=== PATIENT | female | born 1960 | race Caucasian/White ===

== ENCOUNTER → 2017-01-15 | Outpatient (CLI) | payer BC, OTHER ==
[~2017-01-15] MED LIST: ALBU8.5H5 INH; ASPI-557 PO; FLUT1DIS3 ORAL INH; IBUP-1724 PO; MULT1TAB69 PO; NAPR220C11 PO; PRED20TA PO; TRAZ-170 PO
== END ==
LOC: WC.BC 12:57
DX: Z12.31 Encounter for screening mammogram for malignant neoplasm of breast (principal)
CPT/HCPCS: 77063; G0202

== ENCOUNTER 2017-01-16 05:45 | Day surgery (SDC) | payer BC ==
[~2017-01-16] VITALS: Ht 167.6 cm; Wt 117.5 kg
--- OUTSIDE RECORDS SUMMARY | 2017-01-16 05:48 | XMS REPORT | Continuity of Care Document ---
Author Author [facility] Organization [facility] Address Unknown Phone Unavailable Support Name Relationship Address Phone ANTONIA MORATAYA MD Caregiver [address] [place] [address] Unavailable JENNIE BETANCOURT DO Caregiver [address] [place] [address] Unavailable ADMA HORN Next Of Kin [address] [place], [place] [id number] Insurance Providers Guarantor Jose Horn Address [address] [place] [address] c Email DENIED 16 Payer [facility] Policy Number [id number] Subscriber's Name Panchito,Adam Relationship 01 Spouse Group Number [id number] Effective Date 13 Payer Workers Compensation Subscriber's Name Jose Horn Relationship 18 Self Chief Complaint and Reason for Visit Chief Complaint Allergic Reaction Reason for Visit Allergic reaction Problems Active Problems Medical Problem Onset Date Status Allergic reaction Unknown Acute DM2 (diabetes mellitus, type 2) Unknown Chronic Obesities, morbid Unknown Chronic Patient left without being seen Unknown Acute Precordial chest pain Unknown Acute Past Problems Medical Problem Onset Date Cardiac angina Unknown Chest pain, rule out acute myocardial infarction Unknown Viral gastroenteritis Unknown Medications Current Home Medications Medication Dose Units Route Directions Days Qty Instructions Start Date Albuterol Sulfate (Proair Hfa) 8.5 Gm Aerosol 2 Puff Inhalation Every 4 Hours as needed for Prn Orders 12/18/11 Aspirin (Aspir 81) 81 Mg Tablet. 81 Mg Oral Daily 10/05/16 Fluticasone/Salmeterol (Advair 250-50 Diskus) 1 Disk W/Dev Inhaler 1 Puff Oral Inhalation Resp.tx Twice A Day 10/05/16 Ibuprofen 200 Mg Tablet 400 Mg Oral Every 6 Hours as needed for Pain 12/01/16 Multivitamin (Multivitamins) 1 Each Tablet 1 Tab Oral Daily 08/10 Prednisone 20 Mg Tablet 40 Mg Oral Daily 5 Days 10 Tablet Take daily each morning 12/01/16 Family History Relationship Condition Age at Onset Recorded Date/Time Not Specified Family history of coronary artery disease Not Recorded 2015 10:54am Social History Social History Problem Response Recorded Date/Time Onset Date Status Hx Substance Use No 12/01/2016 11:40am Not Applicable Not Applicable Hx Alcohol Use No 12/01/2016 11:40am Not Applicable Not Applicable Has the pt used tobacco in the last 12 months No 08/10/2016 3:27pm Not Applicable Not Applicable Query Response Start Date Stop Date Smoking Status Former smoker Hospital Discharge Instructions No hospital discharge instructions. Plan of Care Discharge Date 12/01/16 1:04pm Disposition 01 DISCHARGED HOME, SELF-CARE Condition at Discharge Improved Instructions/Education Provided General Allergic Reaction (ED) Prescriptions See Medication Section Referrals ANTONIA MORATAYA MD Order Date: 2 Days Address: [address] [place] [address] [place] [address] Note: Additional Instructions/Education Follow up as directed. Return to the ED if your condition worsens or changes in any manner. Care Plan and Goals Physician Care Plan Problem: Allergic Reaction Goal: Follow up with primary care provider Instructions: Take medications and follow care plan as discussed/written Goal: Follow up with primary care provider Instructions: Take medications and follow care plan as discussed/written Functional Status No functional status results. Allergies, Adverse Reactions, Alerts Allergen Type Severity Reaction Status Last Updated NKDA Allergy Unknown Active 12/01/16 Immunizations Query Response on File Recorded Date/Time Hx Influenza Vaccination No 08/10/16 3:27pm Hx Pneumococcal Vaccination No 08/10/16 3:27pm Hx Influenza Vaccination No 08/10/16 3:27pm DTaP Vaccine History 201112/01/16 11:40am Vital Signs Acute Vital Signs Vital Response Date/Time Temperature (Fahrenheit) 98.3 deg F (96.8 - 99.1) 12/01/2016 1:04pm Temperature (Calculated Celsius) 36.65545 degrees C (36.0 - 37.3) 12/01/2016 1:04pm Pulse Rate (adult) 68 bpm (60 - 100) 12/01/2016 1:04pm Respiratory Rate 20 breaths/min (10 - 20) 12/01/2016 1:04pm O2 Sat by Pulse Oximetry 96 % (90 - 100) 12/01/2016 1:04pm Blood Pressure 131/72 mm Hg 12/01/2016 1:04pm Height (Feet) 5 feet 12/01/2016 10:40am Height (Inches) 6.00 inches 12/01/2016 10:40am Weight (Kilograms) 121.200 kg 12/01/2016 10:40am Body Mass Index (BMI) 43.0 12/01/2016 10:40am Results Laboratory Results Test Name Result Units Flags Reference Collection Date/Time Result Date/ Time Comments White Blood Count 9.0 T/MM3 4.5-11.0 10/05/2016 10:54am 10/05/2016 11: 15am Red Blood Count 5.03 M/MM3 4.00-5.20 10/05/2016 10:54am 10/05/2016 11: 15am Hemoglobin 14.7 GM/DL 12-16 10/05/2016 10:54am 10/05/2016 11:15am Hematocrit 43.6 % 36-46 10/05/2016 10:54am 10/05/2016 11:15am Mean Corpuscular Volume 86.7 UM3 80-100 10/05/2016 10:54am 10/05/2016 11:15am Mean Corpuscular Hemoglobin 29.2 UUG 26-34 10/05/2016 10:54am 2015 11:15am Mean Corpuscular Hemoglobin Concent 33.7 GM/DL 31-37 10/05/2016 10:54am 10/05/2016 11:15am RDW Standard Deviation 43.2 FL 36.9-50.2 10/05/2016 10:54am 10/05/2016 11:15am Platelet Count 168 T/MM3 130-400 10/05/2016 10:54am 10/05/2016 11:15am Mean Platelet Volume 10.4 UM3 9.4-12.4 10/05/2016 10:54am 10/05/2016 11 :15am Neutrophils (%) (Auto) 71.9 % H 33-66 10/05/2016 10:54am 10/05/2016 11: 15am Lymphocytes (%) (Auto) 18.3 % L 23-45 10/05/2016 10:54am 10/05/2016 11: 15am Monocytes (%) (Auto) 5.4 % 0-9.0 10/05/2016 10:54am 10/05/2016 11:15am Eosinophils (%) (Auto) 3.9 % 0-4 10/05/2016 10:54am 10/05/2016 11:15am Basophils (%) (Auto) 0.3 % 0-2 10/05/2016 10:54am 10/05/2016 11:15am Immature Granulocyte % (Auto) 0.2 % 0.0-0.5 10/05/2016 10:54am 2015 11:15am Absolute Neutrophils (auto) 6.5 T/MM3 1.8-7.7 10/05/2016 10:54am 2015 11:15am Absolute Lymphocytes (auto) 1.7 T/MM3 1-4.8 10/05/2016 10:54am 2015 11:15am Absolute Monocytes (auto) 0.5 T/MM3 0-0.8 10/05/2016 10:54am 2015 11:15am Absolute Eosinophils (auto) 0.4 T/MM3 0-0.5 10/05/2016 10:54am 2015 11:15am Absolute Basophils (auto) 0.0 T/MM3 0-0.2 10/05/2016 10:54am 2015 11:15am Absolute Immature Granulocyte (auto 0.02 T/MM3 0.00-0.03 10/05/2016 10: 54am 10/05/2016 11:15am Icterus Index < 2 0-7 10/05/2016 10:54am 10/05/2016 11:21am Chemistry Specimen Hemolysis 37 H 0-25 10/05/2016 10:54am 10/05/2016 11:21am 26-70: Specimen Exhibited Slight Hemolysis - can falsely elevate K (Potassium) and Urine Protein. Turbidity < 20 0-20 10/05/2016 10:54am 10/05/2016 11:21am Sodium Level 144 MEQ/L 134-144 10/05/2016 10:54am 10/05/2016 11:29am Potassium Level 4.0 MEQ/L 3.6-5 10/05/2016 10:54am 10/05/2016 11:29am Chloride Level 110 MEQ/L H 98-107 10/05/2016 10:54am 10/05/2016 11:29am Carbon Dioxide Level 21 MEQ/L L 22-30 10/05/2016 10:54am 10/05/2016 11: 21am Anion Gap 13 MEQ/L 5-15 10/05/2016 10:54am 10/05/2016 11:29am Blood Urea Nitrogen 12.0 MG/DL 7-17 10/05/2016 10:54am 10/05/2016 11: 21am Creatinine 0.6 MG/DL L 0.7-1.2 10/05/2016 10:54am 10/05/2016 11:21am BUN/Creatinine Ratio 20 RATIO 6-26 10/05/2016 10:54am 10/05/2016 11: 21am Glomerular Filtration Rate Calc 104 10/05/2016 10:54am 10/05/2016 11:21am Glucose Level 104 MG/DL 65-110 10/05/2016 10:54am 10/05/2016 11:21am Calculated Osmolality 277 MOSM/KG 261-280 10/05/2016 10:54am 2015 11:29am Calcium Level 8.8 MG/DL 8.4-10.2 10/05/2016 10:54am 10/05/2016 11:21am Total Bilirubin 0.50 MG/DL 0.20-1.30 10/05/2016 10:54am 10/05/2016 11: 21am Alkaline Phosphatase 61 U/L 38-126 10/05/2016 10:54am 10/05/2016 11: 21am Total Protein 6.8 G/DL 6.3-8.2 10/05/2016 10:54am 10/05/2016 11:21am Albumin 3.9 G/DL 3.5-5.0 10/05/2016 10:54am 10/05/2016 11:21am Globulin 2.9 G/DL 2.4-3.6 10/05/2016 10:54am 10/05/2016 11:21am Albumin/Globulin Ratio 1.3 RATIO 1.1-2.2 10/05/2016 10:54am 10/05/2016 11:21am Aspartate Amino Transf (AST/SGOT) 27 U/L 14-36 10/05/2016 10:54am 10/05 11:21am Alanine Aminotransferase (ALT/SGPT) 37 U/L 9-52 10/05/2016 10:54am 08/2016 11:21am Lipase 50 U/L 23-300 10/05/2016 10:54am 10/05/2016 11:21am Name: JOSE HORN Unit #: [id number] : [id number] Sex: F Admit Date: Loc / Svc: ED Discharge Date: DIAGNOSTIC IMAGING REPORT Report #: [id number] [facility] PandeyJOHN INDICATION: ITS.REASON: cough PROCEDURE: CHEST 2-VIEWS UPRIGHT (PA \\T\\ LAT) Encounter: Initial COMPARISON: 08/10/2016 FINDINGS: The lungs are clear without evidence of focal abnormal airspace opacity. There is no pleural effusion or pneumothorax. The heart size, mediastinal contours and pulmonary vascularity are within normal limits. There is no significant skeletal abnormality. IMPRESSION: No acute cardiopulmonary disease. . Procedures Procedure Status Date Provider(s) X-ray exam of abdomen Completed 10/05/16 Comprehen metabolic panel Completed 10/05/16 Assay of lipase Completed 10/05/16 Complete cbc w/auto diff wbc Completed 10/05/16 Electrocardiogram tracing Completed 10/05/16 Hydrate iv infusion add-on Completed 10/05/16 Hydrate iv infusion add-on Completed 10/05/16 Ther/proph/diag inj iv push Completed 10/05/16 Tx/pro/dx inj new drug addon Completed 10/05/16 Emergency dept visit Completed 10/05/16 121427"INJECTION, KETOROLAC TROMETHAMINE, PER 15 MG" Completed 10/05/16 [id number]"INJECTION, ONDANSETRON HYDROCHLORIDE, PER 1 MG" Completed 10/05/16 [id number]"INFUSION, NORMAL SALINE SOLUTION , 1000 CC" Completed 10/05/16 Encounters Encounter Location Arrival/Admit Date Discharge/Depart Date Attending Provider Departed Emergency Room [facility] 12/01/16 10:37am 12/01/16 1: 04pm JENNIE BETANCOURT DO Departed Emergency Room [facility] 10/05/16 10:11am 10/05/16 1: 10pm GORDO BRENNER DO Recent Diagnosis
--- OUTSIDE RECORDS SUMMARY | 2017-01-16 05:48 | XMS REPORT | Continuity of Care Document ---
Author Author [facility] Organization [facility] Address Unknown Phone Unavailable Support Name Relationship Address Phone MINA CHAPIN MD Caregiver [facility] [address] [place] [phone] LUIS BARONE MD Caregiver [address] [place] [address] [place] [phone] ADAM HORN Next Of Kin [address] [place] [address] C Insurance Providers Payer Name Policy Number Subscriber Name Relationship [facility] [id number] Adam Horn J 01 Spouse Problems Medical Problems Problem Onset Date Status Patient left without being seen Unknown Active Medications Medication Dose Route Sig Days/Qty Instructions Order Date Discontinued Date Status Azithromycin 1 G PO 12/18/11 Active Azithromycin 1 Pack PO 12/18/11 Active Ibuprofen 200 Mg PO NEEDED 12/18/11 Active Albuterol Sulfate 8.5 Gm IH NEEDED 12/18/11 Active Calcium Carbonate/Vitamin D3 1 Tab PO DAILY 12/18/11 Active Social History Social History Problem Response Recorded Date/Time Hx Substance Use No 12/18/2011 3:42pm Hx Alcohol Use Y 1X MONTH 12/18/2011 3:42pm Hospital Discharge Instructions No hospital discharge instructions. Plan of Care No plan of care. Functional Status No functional status results. Allergies, Adverse Reactions, Alerts Allergen Type Severity Reaction Status Last Updated NKDA Allergy Active 12/19/11 Immunizations Name Given Type Hx Influenza Vaccination No Historical Hx Pneumococcal Vaccination No Historical Hx Influenza Vaccination No Historical Vital Signs No known vital signs results. Results Test Source Date Result Interp. Ref. Range Comments Urine Test December 19, 2011 8:30am Negative - Has specimen been collected/obtained? Y Procedures Procedure Status Date Provider(s) COMP SCREEN MAMMOGRAM ADD-ON completed 01/05/15 [id number]"SCREENING MAMMOGRAPHY, PRODUCING DIRECT DIGITAL IMAGE completed Encounters Encounter Location Date/Time Departed Emergency Room [facility] 02/05/15 8:12pm Registered Clinic [facility] 01/05/15 8:55am Recent Diagnosis
[2017-01-16 06:04] VITALS: BP 120/74; PULSE 71; RESP 12; TEMP 98.5; O2SAT 93; Ht 167.6 cm; Wt 117.5 kg
[2017-01-16] MEDS ORDERED: LIDOCAINE 1% (10mg/ml) 2ml SDV INJ ONE (07:00)
[2017-01-16] MEDS ORDERED: LR 1,000 ML IV SCH (07:00)
--- NOTE | 2017-01-16 09:17 | ANESPREOP ---
Anesthesia Record Date and Time DATE: 01/16/17 TIME: 09:14 Pre-Op Diagnosis family hx of colon ca Proposed Surgical Procedure colonoscopy Allergies: Coded Allergies: NKDA (Verified Allergy, Unknown, 01/16/17) Ht/Wt/BMI Height: 5 ' 6.00 " Weight: 117.500 kg BMI: 41.8 kg/m2 Vital Signs Date Time Temp Pulse Resp B/P Pulse Ox O2 Delivery O2 Flow Rate FiO2 01/16/17 06:04 98.5 71 12 120/74 93 Room Air Medications Inpatient Medications Current Medications Medications (Trade) Dose Ordered Sig/Arben Start Time Stop Time Status Last Admin Dose Admin Lactated Ringer's (Lactated Ringers) 1,000 ml @ 50 mls/hr Q20H 01/16/17 07:00 01/16/17 06:25 50 MLS/HR Albuterol Sulfate (Proair Hfa) 8.5 Gm Aerosol, 2 PUFF INH Q4HR PRN for PRN ORDERS, (Reported) Last Taken: on 01/15/17 1400 Aspirin (Aspir 81) 81 Mg Tablet.dr, 81 MG PO DAILY, (Reported) Last Taken: on 01/12/17 0800 Fluticasone/Salmeterol (Advair 250-50 Diskus) 1 Disk W/Dev Inhaler, 1 PUFF ORAL INH RTBID, (Reported) Last Taken: on 01/16/17 0530 Ibuprofen (Ibuprofen) 200 Mg Tablet, 400 MG PO Q6H PRN for PAIN, (Reported) Last Taken: on 01/09/17 0800 Multivitamin (Multivitamins) 1 Each Tablet, 1 TAB PO DAILY, (Reported) Last Taken: on 01/02/17 0800 Naproxen Sodium (Aleve) 220 Mg Capsule, 3 CAP PO HS PRN for PAIN, (Reported) Last Taken: on Unknown Date & Time Prednisone (Prednisone) 20 Mg Tablet, 40 MG PO DAILY Take daily each morning Last Taken: on Unknown Date & Time Trazodone HCl (Trazodone HCl) 50 Mg Tablet, 50 MG PO HS, (Reported) Take 1 tablet, by mouth, one time a day (at BEDTIME). Last Taken: on 01/12/17 2200 Currently on Beta Shira: No Medical/Surgical History Anesthesia PMH: Reports: *Diabetes (TYPE II), Asthma (PER H&P), Obesity, Denies : *Hypertension, *NV, Anesthesia Reactions (DIFFICULTY BREATHING AFTER INTUBATION), Blood Transfusion Reac, CHF, COPD, CVA/Stroke/TIA, Cancer, Glaucoma , Pacemaker, Seizures, Sleep Apnea, Thyroid Disease Smoking Status: Never smoker Has pt. smoked today?: No Use Chewing Tobacco?: No Substance Use Type: does not use Substance last used: unknown Alcohol Intake: none Last Drink: unknown HX of Last Menstrual Period: MARCH 2014 Past Surgical History Orthopedic Surgeries: Yes - R RTCR-PER H&P Abdominal Surgeries: Yes - DX LAPAROSCOPY & APPY,ESTEPHANIA PER H&P Genitourinary Surgeries: No Cardiac Surgeries: No Endocrine Surgeries: No Reproductive Surgeries: Yes - D&C X2 , PER H&P Neurological Surgeries: No Ear Surgeries: No Nose Surgeries: No Throat Surgeries: No Other Surgeries: Yes - COLONOSCOPY,BONE GRAFT Anesthesia Adverse Reactions: FOUND none Family Hx of Anesthesia Advers: none Hx of Motion Sickness: No Pertinent Findings EKG Rhythm: Sinus Rhythm Physical Exam Respiratory: Bilat breath sounds equal, Lungs clear Cardiovascular: FOUND Regular rate, rhythm, FOUND No murmur Airway Assessment Mallampati Score: II TMD: 2 Fingerbreadths Neck Extension: Fair Overall Assessment: May Be Diff Mask Vent., May Be Diff Intubation ASA: 2 Plan Anesthesia Plan: TIVA Discussion Discussed risks/options/alternatives of anesthesia and questions answered. Patient consents. Nursing pain assessment noted. Present: Spouse Attestation Statement Prior to the delivery of any anesthetic medication, I examined the patient, developed the plan, obtained the patient's consent and discussed the risk and benefits of the procedure with the patient/guardian. CYNTHIA TORRE CRNA Jan 16, 2017 09:17
[2017-01-16] MEDS ORDERED: PROPOFOL 500mg 50 ML IV ONE (09:20)
[2017-01-16] MEDS ORDERED: LIDOCAINE 1% (10mg/ml) 2ml SDV ONE (09:20)
[2017-01-16 09:49] VITALS: BP 116/81; PULSE 80; RESP 12; TEMP 97.2; O2SAT 96
--- NOTE | 2017-01-16 09:49 | GSPOSTPROC ---
Immediate Operative Note DATE: 01/16/17 TIME: 09:48 Postop Diagnosis: Hematochezia Surgical Procedure: C-scope Surgeon: Ruy ASA: 2 NASREEN MORA MD Jan 16, 2017 09:49
[2017-01-16 10:00] VITALS: BP 114/66; PULSE 76; RESP 17; O2SAT 95
[2017-01-16 10:15] VITALS: BP 118/67; PULSE 72; RESP 22; O2SAT 94
[2017-01-16 10:25] VITALS: BP 128/72; TEMP 97.2
--- NOTE | 2017-01-16 10:43 | ANESPO ---
Post-Op Note Date 01/16/17 Time: 10:42 Status Pt Participated in Evaluation: Pt participated in person Vital Signs Date Time Temp Pulse Resp B/P Pulse Ox O2 Delivery O2 Flow Rate FiO2 01/16/17 10:25 97.2 128/72 Room Air 01/16/17 10:15 72 22 94 Respiratory Function: Airway patent, Regular respirations Cardiovascular Function: Regular pulse Mental Status: Alert/oriented Pain Level Intensity: 0 (0) Hydration: Taking po fluids Complications during Recovery None apparent Post-Anesthesia Notes pt. [email or web address] well Follow-Up Instructions Instructions Per Surgeon Additional Information none CYNTHIA TORRE CRNA Jan 16, 2017 10:43
--- NOTE | 2017-01-16 13:51 | OPNOTEF ---
DATE OF OPERATION 01/16/2017 PREOPERATIVE DIAGNOSES 1. Strong positive family history of colon carcinoma. 2. Recent episode of hematochezia. 3. Chronic constipation which is worsening. POSTOPERATIVE DIAGNOSES 1. Internal hemorrhoids. 2. Recent episode of hematochezia. 3. Chronic constipation which is worsening. 4. Strong positive family history of colon carcinoma. OPERATION Total colonoscopy. SURGEON Dr. Redmond ANESTHESIA TIVA ASA CLASS 2 FINDINGS There were no colon or rectal tumors. There were no colon or rectal polyps. There were no colonic angiodysplasia lesions. There was no melanosis coli. There was no inflammatory bowel disease. There was no colonic diverticulosis. The patient does have some internal hemorrhoids. No bright red blood or old blood was seen anywhere at the colon or rectum at the time of the operation today. It was thought at the conclusion of the operation today that the hematochezia experienced by the patient is due to bleeding from internal hemorrhoids. DESCRIPTION OF OPERATION The patient was brought to the endoscopy room. The patient was placed on a cart in the endoscopy room. The patient was placed in left lateral recumbent position on the cart in the endoscopy room. The patient was premedicated with some intravenous sedation medication administered by the nurse director of front office. The Olympus colonoscope was used. The colonoscope was introduced into the rectum. The colonoscope was advanced up through the rectum and colon all way up to the cecum. The appendiceal orifice was visualized. The ileocecal valve was visualized. The colonoscope was then withdrawn out through the colon and rectum and removed from the patient. Digital rectal examination was performed. Findings throughout procedure were as described above. The patient did continue to receive intravenous sedation medication administered by the nurse director of front office throughout the operation. The patient did tolerate the operation well. RECOMMENDATION Followup colonoscopy again in five years. YANG
== END 2017-01-16 10:45 | disposition home or self-care (01) ==
LOC: SCU 05:45
PROVIDERS: ATTEND Surgery
DX: K64.8 Other hemorrhoids (principal); K92.1 Melena; Z80.0 Family history of malignant neoplasm of digestive organs; K59.09 Other constipation; E66.01 Morbid (severe) obesity due to excess calories; Z68.41 Body mass index [BMI] 40.0-44.9, adult; J45.909 Unspecified asthma, uncomplicated; G47.00 Insomnia, unspecified; Z79.1 Long term (current) use of non-steroidal anti-inflammatories (NSAID); Z79.899 Other long term (current) drug therapy
CPT/HCPCS: 45378; J2704; J7120